=== PATIENT | male | born 1945 | race Asian ===

== ENCOUNTER → 2017-01-10 | Outpatient (CLI) | payer BC ==
[~2017-01-10] MED LIST: GEMF600T PO; NEBI2.5T2 PO
--- NOTE | 2017-01-10 14:15 | RADRPT ---
PROCEDURE: XR Cervical Spine. CLINICAL INDICATION: Neck pain. TECHNIQUE: Three views of the cervical spine were performed. Frontal, lateral, and AP open-mouth o dontoid. The images were reviewed on a PACS workstation. COMPARISON: None. FINDINGS: There is normal stature and alignment of the vertebrae. There is no fracture. There is no lytic or blastic lesion. There are degenerative changes with osteophytes and disk space narrowing at C5-6 and C6-7. The prevertebral soft tissues are normal. IMPRESSION: 1. Degenerative changes at C5-6 and C6-7. 2. Otherwise normal images of the cervical spine. RPTAT: QQ .Leon Collins MD, Date Time Electronically viewed and signed by .Leon Collins MD, on 01/10/2017 14:14 .R/
--- NOTE | 2017-01-10 14:16 | RADRPT ---
PROCEDURE: XR Chest. CLINICAL INDICATION: Chest pain. TECHNIQUE: Two views. Frontal and lateral. COMPARISON: No prior study is available for comparison. FINDINGS: The lungs are clear. The heart size is normal. There is no pleural effusion. There is no pneumothorax. IMPRESSION: 1. Normal chest radiograph. RPTAT: QQ .Leon Collins MD, MD Date Time Electronically viewed and signed by .Leon Collins MD, on 01/10/2017 14:16 .R/
--- NOTE | 2017-01-10 14:16 | RADRPT ---
PROCEDURE: XR Left Shoulder. CLINICAL INDICATION: Left shoulder pain. TECHNIQUE: Three views. Frontal internal rotation, frontal external rotation, and scapular Y-view . COMPARISON: No prior study is available for comparison. FINDINGS: There is no fracture or dislocation. The soft tissues are normal. Articular surfaces are intact. There is no lytic or blastic lesion. There is no radiopaque foreign body. IMPRESSION: 1. Normal images of the left shoulder. RPTAT: QQ .Leon Collins MD, MD Date Time Electronically viewed and signed by .Leon Collins MD, on 01/10/2017 14:15 .R/
== END | disposition home or self-care (01) ==
LOC: RAD 12:05
PROVIDERS: ATTEND Internal Medicine
DX: M25.512 Pain in left shoulder (principal)
CPT/HCPCS: 71020; 72040; 73030

== ENCOUNTER → 2017-11-14 | Outpatient (CLI) | END | disposition home or self-care (01) ==